=== PATIENT | female | born 1965 | race Caucasian/White ===

== ENCOUNTER 2023-07-26 10:58 | Outpatient (CLI) | payer BC, SELFPAY ==
--- NOTE | 2023-07-26 12:42 | W.ANESCHARGE ---
Anesthesia Charges Start Date/Time Anesthesia Start Date: 07/26/23 Anesthesia Start Time: 12:12 Stop Date/Time Anesthesia Stop Date: 07/26/23 Anesthesia Stop Time: 12:39
--- NOTE | 2023-07-26 13:43 | W.ANESCHARGE ---
Anesthesia Charges Start Date/Time Anesthesia Start Date: 07/26/23 Anesthesia Start Time: 12:12 Stop Date/Time Anesthesia Stop Date: 07/26/23 Anesthesia Stop Time: 12:39
== END 2023-07-26 10:59 | disposition home or self-care (01) ==
PROVIDERS: PCP Family Medicine; Visit Provider Internal Medicine Gastroenterology
DX: Z12.11 Encounter for screening for malignant neoplasm of colon (principal); Z86.010 Personal history of colon polyps
CPT/HCPCS: 00812; 45378; J2704